=== PATIENT | female | born 1995 | race Caucasian/White ===

== ENCOUNTER 2019-10-26 21:21 | Emergency (ER) | payer MEDICAID, SELFPAY ==
[2019-10-26 21:23] VITALS: BP 185/101; PULSE 99; RESP 16; TEMP 36.5; O2SAT 95; BMI 37.8
--- NOTE | 2019-10-26 21:51 | ED.VIS.GEN ---
History of Present Illness Chief Complaint: Headache Informant: Patient Onset: Days - Worst headache was morning. Second evening precipitated by stress per patient. She had 4 episodes on Monday and several episodes today. Context: Gradual Onset Timing: Intermittent - Duration up to 1 hour Quality: Throbbing Location: Bifrontal Current Severity: Severe Maximum Severity: Severe Worsened by: Light Relieved by: Nothing Associated Symptoms: Photophobia and nausea Narrative: Patient is a 24-year-old woman with history of migraine headaches who presents with recurrent headaches. She took her normal regimen without relief. She denies double vision, partial loss of vision or total loss of vision. She denies ringing in ears or decreased hearing. She denies neck pain or stiffness. She denies cardiac respiratory symptoms. She denies vomiting or diarrhea. She denies urologic symptoms. She denies problems with balance or coordination. She denies trouble with speech or swallowing. There is no family history of subarachnoid hemorrhage. Prior similar symptoms: No Recent Illness/Hospitalization: No - Past Medical History (1) Migraine headache Status: Chronic Past Medical History - Allergies and Home Meds Allergies/Adverse Reactions: Allergies No Known Allergies Allergy (Verified 10/26/19 22:03) Primary Care Physician: NOT,DEFINED [Primary Care Provider] - Prior records reviewed: Yes Surgical History: noncontributory Lives: Alone Smoking Status: Never smoker Alcohol: None Drugs: None Review of Systems General: Denies: Chills, Fever, Malaise, Subjective, Sweats, Weight loss Eyes: Denies: Visual changes - bilaterally, Blurred Vision - bilaterally, Diplopia ENT: Denies: Bilateral ear pain, Rhinorrhea, Sore throat Cardiovascular: Denies: Chest pain, Palpitations Respiratory: Denies: Dyspnea, Cough, Dyspnea on exertion Gastrointestinal: Denies: Abdominal pain, Nausea, Vomiting, Diarrhea, Melena, Hematochezia Genitourinary: Denies: Dysuria, Hematuria, Frequency Musculoskeletal: Denies: Myalgias, Arthralgias, Neck pain, Back pain, Swelling, Extremity Pain, -, - Skin: Denies: Rash, Wounds Neurological: Reports: Headache. Denies: Weakness, Parasthesia, Numbness, -, - Psych: Reports: Depression, Anxiety Hematologic: Denies: Easy bruising, Easy bleeding Physical Exam Vital Signs/Narrative: Vital Signs Temp Pulse Resp BP Pulse Ox 10/26/19 21:23 97.7 F L 99 16 185/101 H 95 Inital Vital Signs reviewed: Yes General: Well nourished, Well developed, Obese, - - Patient had little eye contact. Tears are noted. Head: Normocephalic, Atraumatic. Negative for: Trauma, Tenderness Eyes: Perrl, EOMI. Negative for: Pale conjunctiva, Scleral icterus ENT: Moist mucous membranes, No rhinorrhea, TM's clear Neck: Supple, Nontender, No lymphadenopathy, No JVD, - - There are no meningeal findings. Cardiovascular: Regular rate, Regular rhythm, No murmurs, Normal S1, Normal S2 Respiratory: No distress, CTA bilaterally, Chest nontender Abdomen: Soft, Nontender, Nondistended, Normal bowel sounds Rectal: Deferred Back: Nontender, Normal Inspection. Negative for: CVA tenderness Extremities: Nontender, No edema Skin: Normal color, No rash. Negative for: Cyanosis, Diaphoresis, Jaundice, No Trauma Neurological: Alert, Oriented x3, Cranial nerves II-XII grossly intact, Normal Strength, Normal Sensation, Normal DTR, - - There is no clonus or Babinski sign noted. Psychological: Depressed, Tearful Diagnostic/Tx/Re-eval - Medical Decision Making With history of migraine headaches will treat with IV Toradol, Benadryl and Reglan. Since headache was not abrupt and there are no neurovascular findings or meningeal findings imaging was not obtained. She has no symptoms to suggest sinusitis. Patient was reassessed at 2225. When asked how she felt she began to laugh. She sat up and was smiling. Asked if she would like to go home. She replied yes . ED Disposition - Plan for ED Patient: Disposition: Home or Assisted Living Diagnosis: Headache, migraine, intractable Instructions: ED, Migraine (Classical) Referrals: NOT,DEFINED [Primary Care Provider] - Doctor,Your [STAFF PHYSICIAN] - 1 Week
[2019-10-26] MEDS: Ketorolac 30 MG/ML Syringe 15 MG IV (21:57)
[2019-10-26] MEDS: Metoclopramide 10 MG/2 ML Vial IV (21:57)
[2019-10-26] MEDS: DiphenhydrAMINE 50 MG/ML Syringe 25 MG IV (21:57)
[2019-10-26 22:05] VITALS: BP 136/79; PULSE 70; RESP 16; O2SAT 98
== END 2019-10-26 22:57 | disposition home or self-care (01) ==
LOC: ED 22:54
PROVIDERS: Emergency Provider Emergency Medicine
DX: G43.919 Migraine, unspecified, intractable, without status migrainosus (principal); E66.9 Obesity, unspecified
CPT/HCPCS: 96374; 96375; 99283; A4216